=== PATIENT | female | born 1990 | race Caucasian/White ===

== ENCOUNTER 2018-04-11 15:00 | Inpatient (IN) | payer BC ==
[~2018-04-11] VITALS: Ht 149.9 cm; Wt 91.2 kg
[~2018-04-11 15:00] MED LIST: ORTHO TRI-CY1 TABLE1 PO; ZANTAC150 MG PO
[2018-04-11 15:28] LABS: BASOPHIL (%) 0.5 % (0-1); BASOPHIL COUNT 0.1 K/uL (0-0.1); EOSINOPHIL (%) 2.9 % (0-5); EOSINOPHIL COUNT 0.3 K/uL (0-0.3); HEMOGLOBIN 12.8 G/DL (11.9-15.5); IMMATURE GRANULOCYTE (%) 0.4 % (0.0-0.7); LYMPHOCYTE (%) 26.6 % (15-42); LYMPHOCYTE COUNT 2.8 K/uL (1.0-2.8); MCH 27.8 PG (29.0-34.0); MCHC 33.7 G/DL (30.0-36.0); MCV 82.6 FL (83-99); MONOCYTE (%) 6.8 % (3-12); MONOCYTE COUNT 0.7 K/uL (0-0.8); NEUTROPHIL (%) 62.8 % (45-76); NEUTROPHIL COUNT 6.7 K/uL (1.8-6.4); PLATELET COUNT 346 K/uL (156-360); RBC DIS.WIDTH-CV 13.2 % (11.8-14.6); RBC DIS.WIDTH-SD 39.6 % (39-53); WHITE BLOOD COUNT 10.6 K/uL (4.1-10.2)
[2018-04-11 15:37] LABS: AMYLASE 60 IU/L (1-118); CHLORIDE 106 mEq/L (99-109); POTASSIUM 3.9 mEq/L (3.7-5.4); PTT 31.4 SEC (25-37); SODIUM 143 mEq/L (136-147)
[2018-04-11 15:39] LABS: GLUCOSE 102 mg/dL (70-99)
[2018-04-11 15:43] LABS: CREATININE 0.8 mg/dL (0.6-1.3); GFR ESTIMATE (CALCULATED) > 59 mL/min/
[2018-04-11 15:44] LABS: UREA NITROGEN (BUN) 10 mg/dL (9-23)
[2018-04-11 15:46] LABS: LIPASE 26 U/L (1.0-51.0)
[2018-04-11 15:48] LABS: TROP-I INTERPRETATION NEGATIVE; TROPONIN-I < 0.01 ng/mL (0.0-0.30)
[2018-04-11 15:51] LABS: QUANTITATIVE HCG < 4.0 MIU/ML
[2018-04-11 16:18] LABS: C-REACTIVE PROTEIN 12.1 MG/L (0-10)
[2018-04-11 16:22] LABS: ERTH.SED.RATE 44 MM/HR (0-20)
[2018-04-11 16:27] LABS: APPEARANCE CLEAR ((CLEAR)); BILIRUBIN NEGATIVE; BLOOD SMALL; COLOR STRAW ((YELLOW)); GLUCOSE (STRIP) NEGATIVE; KETONES NEGATIVE; LEUKOCYTES NEGATIVE; NITRITE NEGATIVE; PROTEIN (STRIP) NEGATIVE; SPECIFIC GRAVITY 1.008 (1.000-1.030); UROBILINOGEN 0.2 MG/DL (0.2-1.0)
[2018-04-11 16:31] LABS: BACTERIA RARE /HPF; EPITHELIAL CELLS 1+ /HPF; MUCUS NONE SEEN /LPF; RED BLOOD CELLS 0-5 /HPF (0-5); UCUL ADDED? NO; WHITE BLOOD CELLS 0-5 /HPF (0-5)
[2018-04-11 16:56] LABS: SERUM ETHYL ALCOHOL < 10 mg/dL
[2018-04-11 17:03] LABS: AMPHETAMINE NEGATIVE (500 ng/mL); BARBITURATES NEGATIVE (200 ng/mL); BENZODIAZEPINES NEGATIVE (150 ng/mL); BUPRENORPHINE NEGATIVE (10 ng/mL); COCAINE NEGATIVE (150 ng/mL); METHADONE NEGATIVE (200 ng/mL); METHAMPHETAMINE NEGATIVE (500 ng/mL); OPIATES (MORPHINE) NEGATIVE (100 ng/mL); OXYCODONE NEGATIVE (100 ng/mL); PHENCYCLIDINE NEGATIVE (25 ng/mL); PROPOXYPHENE NEGATIVE (300 ng/mL); THC CANNABINOIDS NEGATIVE (50 ng/mL); TRICYCLIC ANTIDEPRESSANTS NEGATIVE (300 ng/mL)
[2018-04-11] MEDS ORDERED: TRULANCE3 MG PO (18:02)
[2018-04-11 22:36] LABS: HDL CHOLESTEROL 50 MG/DL (Desirable>=50); LDL CHOLESTEROL 148 mg/dL (Desirable<100); NON-HDL CHOLESTEROL 183 mg/dL (Desirable<160); TOTAL CHOLESTEROL 233 mg/dL (Desirable<200); TRIGLYCERIDES 177 MG/DL (Normal: <150)
[2018-04-11 22:56] VITALS: BP 105/65
[2018-04-12 03:49] VITALS: BP 96/51
[2018-04-12 05:19] LABS: HEMOGLOBIN 11.6 G/DL (11.9-15.5); MCH 27.1 PG (29.0-34.0); MCHC 32.2 G/DL (30.0-36.0); MCV 84.1 FL (83-99); PLATELET COUNT 298 K/uL (156-360); RBC DIS.WIDTH-CV 13.3 % (11.8-14.6); RBC DIS.WIDTH-SD 40.7 % (39-53); RED BLOOD COUNT 4.28 M/uL (3.80-5.20); WHITE BLOOD COUNT 7.2 K/uL (4.1-10.2)
[2018-04-12 06:05] LABS: ALBUMIN 3.7 G/DL (3.2-4.8); ALKALINE PHOSPHATASE 65 IU/L (3-129); ALT (GPT) 9 IU/L (3-49); AST (GOT) 9 IU/L (2-34); CHLORIDE 108 MEQ/L (99-109); CREATININE 0.7 MG/DL (0.6-1.3); GFR ESTIMATE (CALCULATED) > 59 mL/min/; GLUCOSE 97 mg/dL (70-99); POTASSIUM 4.3 MEQ/L (3.7-5.4); SODIUM 141 MEQ/L (136-147); TOTAL BILIRUBIN 0.4 MG/DL (0.0-1.0); TOTAL PROTEIN 6.2 G/DL (6.4-8.3); UREA NITROGEN (BUN) 10 mg/dL (9-23)
[2018-04-12 07:04] VITALS: BP 86/53
[2018-04-12 07:27] VITALS: BP 110/79
[2018-04-12 09:56] LABS: HEMOGLOBIN A1c (GLYCOHEMOGLOB) 5.1 % (Below 5.7)
[2018-04-12 11:59] VITALS: BP 98/61
[2018-04-12 15:40] VITALS: BP 111/59
[2018-04-12 19:46] VITALS: BP 108/68
[2018-04-13 00:26] VITALS: BP 91/50
[2018-04-13 03:22] VITALS: BP 110/59
[2018-04-13 07:14] VITALS: BP 84/50
[2018-04-13 11:12] VITALS: BP 107/56
[2018-04-13 11:34] LABS: LYME DISEASE SEROLOGY SCREEN NEGATIVE (NEGATIVE)
[2018-04-13] MEDS ORDERED: PREDNISONE20 MG PO ×2 (12:35→12:44)
[2018-04-13 12:42] LABS: THYROTROPIN (TSH) 4.3 MIU/L (0.4-5.5)
== END 2018-04-13 13:49 | disposition home or self-care (01) | DRG 74 ==
LOC: EME 15:00 → 5SOUTH 19:40 → EDOF 19:40 → ENRESERV 19:49 → 5SOUTH 21:57
PROVIDERS: Emergency Medicine; Internal Medicine; Specialist
DX: G51.0 Bell's palsy (principal); M48.02 Spinal stenosis, cervical region; M50.223 Other cervical disc displacement at C6-C7 level; S76.911A Strain of unspecified muscles, fascia and tendons at thigh level, right thigh, initial encounter; X58.XXXA Exposure to other specified factors, initial encounter; E78.5 Hyperlipidemia, unspecified; K58.9 Irritable bowel syndrome, unspecified; E66.9 Obesity, unspecified; Z68.41 Body mass index [BMI] 40.0-44.9, adult
CPT/HCPCS: 70450; 70553; 72156; 80047; 80048; 80053; 80061; 80306 90; 81003; 82150; 83036; 83690; 84443; 84443 90; 84484; 84702; 85025; 85027; 85610; 85651; 85730; 86038; 86140; 86618; 86850; 86900; 86901; 92610 GN; 93005; 93880; 99281; 99285; G0480; J1644; J1885; J2060; J7030; J7512